=== PATIENT | female | born 1985 | race Caucasian/White ===

== ENCOUNTER 2023-01-18 18:46 | Emergency (ER) | payer OTHER ==
[2023-01-18 18:58] VITALS: BP 121/86; PULSE 114; RESP 19; TEMP 97.5; BMI 27.4
== END 2023-01-18 22:07 | disposition home or self-care (01) ==
LOC: JERFT 18:46
DX: R06.02 Shortness of breath (principal); R07.89 Other chest pain; F41.9 Anxiety disorder, unspecified
CPT/HCPCS: 71046-TC-FY; 93005; 93010; 99284-25